=== PATIENT | female | born 1990 | race Caucasian/White ===

== ENCOUNTER 2025-04-15 18:22 | Emergency (ER) | payer OTHER, SELFPAY ==
[2025-04-15] MEDS ORDERED: Acetaminophen 500 MG TAB ONE (21:07)
[2025-04-15] MEDS ORDERED: Ketorolac Tromethamine 30 MG (1 mL) VIAL ONE (21:26)
== END 2025-04-15 21:56 | disposition home or self-care (01) ==
LOC: ERS 18:22
DX: S93.402A Sprain of unspecified ligament of left ankle, initial encounter (principal); F17.290 Nicotine dependence, other tobacco product, uncomplicated; X50.1XXA Overexertion from prolonged static or awkward postures, initial encounter
CPT/HCPCS: 96372; 99283; J1885